=== PATIENT | male | born 1985 | race Caucasian/White ===

== ENCOUNTER → 2022-12-02 | Outpatient (CLI) | payer OTHER | LOC: M RAD 08:01 | PROVIDERS: ATTEND Surgery Vascular Surgery | DX: I87.2 Venous insufficiency (chronic) (peripheral) (principal); I83.93 Asymptomatic varicose veins of bilateral lower extremities ==

== ENCOUNTER → 2023-03-09 | Outpatient (CLI) | payer OTHER ==
[~2023-03-09] MED LIST: LIDOCAINE 1% MDV 20ML VIAL As Ordered ONE; LIDOCAINE W/EPINEPHRINE 1% 20ML VIAL As Ordered ONE; MIDAZOLAM INJ 2MG/2ML VIAL As Ordered ONE; SODIUM BICARBONATE 8.4% INJ 50MEQ 50ML VIAL As Ordered ONE; fentaNYL 100 MCG/2 ML INJECTION As Ordered ONE
[2023-03-09 12:14] VITALS: TEMP 97.3
[2023-03-09 15:53] VITALS: BP 140/94; O2SAT 99
== END ==
LOC: M IRPRO 11:55
PROVIDERS: ATTEND Surgery Vascular Surgery
DX: I87.2 Venous insufficiency (chronic) (peripheral) (principal); I80.251 Phlebitis and thrombophlebitis of right calf muscular vein
CPT/HCPCS: 36475; 99152; 99153; J2250; J3010

== ENCOUNTER → 2023-03-11 | Outpatient (CLI) | payer OTHER | LOC: M RAD 09:58 | PROVIDERS: ATTEND Surgery Vascular Surgery | DX: I83.813 Varicose veins of bilateral lower extremities with pain (principal); I87.2 Venous insufficiency (chronic) (peripheral) ==

== ENCOUNTER → 2023-07-23 | Outpatient (CLI) | payer OTHER ==
[~2023-07-23] MED LIST changes: +ISOVUE-300 61% 100ML VIAL As Ordered ONE; -LIDOCAINE W/EPINEPHRINE 1% 20ML VIAL As Ordered ONE; -MIDAZOLAM INJ 2MG/2ML VIAL As Ordered ONE; +PROHANCE 279.3MG/ML 5ML VIAL As Ordered ONE; -SODIUM BICARBONATE 8.4% INJ 50MEQ 50ML VIAL As Ordered ONE; -fentaNYL 100 MCG/2 ML INJECTION As Ordered ONE
== END ==
LOC: M RAD 06:46
PROVIDERS: ATTEND Orthopaedic Surgery
DX: M25.511 Pain in right shoulder (principal); M75.31 Calcific tendinitis of right shoulder
CPT/HCPCS: 23350; 73223; 77002; A9576; Q9967

== ENCOUNTER → 2023-11-05 | Outpatient (REF) | LOC: M PLAIMG 09:06 | PROVIDERS: ATTEND Internal Medicine | DX: R52 Pain, unspecified (principal); R06.02 Shortness of breath ==

== ENCOUNTER → 2023-11-29 | Outpatient (CLI) | payer OTHER | LOC: M RAD 13:01 | PROVIDERS: ATTEND Nurse Practitioner | DX: M79.605 Pain in left leg (principal); I82.432 Acute embolism and thrombosis of left popliteal vein; I82.812 Embolism and thrombosis of superficial veins of left lower extremity ==